=== PATIENT | male | born 2000 | race African-American/Black ===

== ENCOUNTER 2023-01-28 04:25 | Emergency (ER) | payer OTHER, SELFPAY ==
--- NOTE | ~2023-01-28 | XR_ITS ---
Left Shoulder Technique: AP and axillary views were obtained. Clinical History: Pain Findings: No fracture or dislocation is seen. Osseous alignment is anatomic. The glenohumeral and acr omioclavicular joint spaces are preserved. Soft tissues are unremarkable. Impression: Unremarkable left shoulder radiographs. Reviewed, dictated and finalized at [facility]. Impression: Unremarkable left shoulder radiographs.
[2023-01-28 04:27] VITALS: BP 92/57; PULSE 83; RESP 14; TEMP 36.6; O2SAT 99
[2023-01-28 06:16] VITALS: BP 110/71; PULSE 64; RESP 18; O2SAT 100
--- NOTE | 2023-01-28 07:06 | PC.NURSE ---
Report given to TJ Moralez at this time.
--- NOTE | 2023-01-28 07:36 | ED.EXTPRO ---
HPI - Extremity Problem General Chief complaint: Extremity Problem,Nontraumatic Stated complaint: I think I pulled something in my shoulder Time Seen by Provider: 01/28/23 06:57 History of Present Illness HPI Narrative: This is a 22-year-old male, complaining of left shoulder pain after forcibly yanking on a door that opened inwards. The patient patient states he felt a pop. He complains of left shoulder pain rated 7/10 and described as dull. Related Data Allergies Allergy/AdvReac Type Severity Reaction Status Date / Time No Known Allergies Allergy Verified 01/28/23 05:21 Review of Systems Review of Systems: CONSTITUTIONAL: Denies fever, chills, or sweats. CARDIOVASCULAR: Denies chest pain, palpitations, or edema. RESPIRATORY: Denies cough or dyspnea. MUSCULOSKELETAL: Left shoulder pain denies back pain, or myalgia. NEUROLOGIC: Denies headache, numbness, dizziness, or weakness. PSYCHIATRIC: Denies anxiety or depression. PMFSH Past Medical History Medical History No significant past medical history Surgical History Surgical History No significant past surgical history Social History Social History Smoking status: Never smoker Alcohol intake: current Drinks per week: 1 Substance use: never Exam Narrative: GENERAL: Well-developed, well-nourished, and in no acute distress. HEAD: Normocephalic, atraumatic. EYES: PERRLA and EOMI. CHEST: Clear to auscultation. No respiratory distress. No wheezes rales or rhonchi HEART: Regular rate and rhythm. No murmur heard. Normal peripheral pulses. EXTREMITIES: Positive coke-can test on the left. Tender palpation over the anterior and posterior aspect of the left shoulder. There is no visible deformity. Range of motion of the left shoulder is limited by pain. Otherwise normal range of motion of all other extremities. No edema. SKIN: Warm, dry, no rash. NEURO: Alert and oriented x3. Moving all 4 limbs purposefully. PSYCH: Normal mood and affect. Course Course Emergency Course: 07:38 - Xray not concerning for fracture, dislocation, or separation. I suspect the patient sustained a rotator cuff tear. Will discharge with recommendation for RICE therapy, NSAIDS and primary care follow up. Discussed return and emergency precautions including signs/symptoms of neurovascular compromise and septic arthritis. The patient voiced understanding and is comfortable with the plan. All questions answered to his satisfaction. Vital Signs Vital signs: Vital Signs Temperature 97.8 F 01/28/23 04:27 Pulse Rate 83 01/28/23 04:27 Respiratory Rate 14 01/28/23 04:27 Blood Pressure 92/57 L 01/28/23 04:27 Pulse Oximetry 99 01/28/23 04:27 Oxygen Delivery Room Air 01/28/23 04:27 Temperature 97.8 F 01/28/23 04:27 Pulse Rate 64 01/28/23 06:16 Respiratory Rate 16 01/28/23 07:53 Blood Pressure 110/71 01/28/23 06:16 Pulse Oximetry 100 01/28/23 06:16 Oxygen Delivery Room Air 01/28/23 04:27 MDM - Extremity (Nontraumatic) MDM Narrative Medical decision making narrative: Plan: Imaging, pain control, reassess Differential Diagnosis Differential diagnosis: Likely other (Shoulder dislocation, shoulder separation, rotator cuff tear, fracture, other) Discharge Plan Discharge Clinical Impression: Acute pain of left shoulder Left rotator cuff tear Qualifiers: Rotator cuff tear extent: unspecified tear extent Rotator cuff tear trauma status: traumatic Encounter type: initial encounter Qualified Code(s): S46.012A - Strain of muscle(s) and tendon(s) of the rotator cuff of left shoulder, initial encounter Patient Disposition: Home, Self-Care Condition: Stable Instructions: Antibiotic Form, Rotator Cuff Injury (ED), Rotator Cuff Injury Exercises (DC) Additional Instruct
[2023-01-28] MEDS: ACETAMINOPHEN 500 MG TABLET 1000 MG PO (07:50)
[2023-01-28 07:53] VITALS: RESP 16
== END 2023-01-28 07:54 | disposition home or self-care (01) ==
PROVIDERS: Emergency Provider Preventive Medicine Aerospace Medicine; PCP Family Medicine
DX: S46.012A Strain of muscle(s) and tendon(s) of the rotator cuff of left shoulder, initial encounter (principal); X50.9XXA Other and unspecified overexertion or strenuous movements or postures, initial encounter
CPT/HCPCS: 73030; 99283; A9270